=== PATIENT | male | born 1990 | race Caucasian/White ===

== ENCOUNTER 2019-12-19 17:35 | Emergency (ER) | payer OTHER ==
[~2019-12-19] VITALS: Ht 172.7 cm; Wt 63.5 kg
[2019-12-19 17:50] VITALS: Ht 172.7 cm; Wt 63.5 kg
[2019-12-19 18:28] LABS: BASOPHIL % 0.5 % (0-2); PLATELET COUNT 213 x10^3mcL (130-400); RED CELL DISTRIBUTION WIDTH 12.7 % (11.5-14.5)
[2019-12-19 18:32] LABS: CALCIUM 9.5 mg/dL (8.5-10.1); CARBON DIOXIDE 30.1 mmol/L (21-32); CHLORIDE SERUM 106 mmol/L (98-107); CREATININE SERUM 1.2 mg/dL (0.7-1.3); GFR1 > 60 mL/min; GLUCOSE SERUM 71 mg/dL (74-106); POTASSIUM SERUM 3.9 mmol/L (3.5-5.1); SODIUM SERUM 143 mmol/L (136-145)
[2019-12-19 18:38] LABS: ALBUMIN 4.5 g/dL (3.4-5.0); ALKALINE PHOSPHATASE 77 U/L (46-116); ALT/SGPT 28 U/L (16-63); AST/SGOT 15 U/L (15-37); BILIRUBIN TOTAL 0.5 mg/dL (0.20-1.00); LIPASE 91 IU/L (73-393); TOTAL PROTEIN, SERUM 7.4 g/dL (6.4-8.2)
[2019-12-19 19:18] LABS: UA SPECIFIC GRAVITY >=1.030 (1.005-1.035); microscopic required? YES; urine erythrocyte TRACE (NEGATIVE)
[2019-12-19 21:19] VITALS: BP 118/67
== END 2019-12-19 21:20 | disposition home or self-care (01) ==
LOC: ED 17:35
PROVIDERS: Specialist
DX: N45.1 Epididymitis (principal)
CPT/HCPCS: 87491; 87591; J0696; Q0092